=== PATIENT | male | born 1955 | race Caucasian/White ===

== ENCOUNTER → 2016-11-23 | Outpatient (CLI) | payer BC ==
--- NOTE | 2016-11-23 17:31 | CT ---
EXAMINATION TYPE: CT brain wo con DATE OF EXAM: 11/23/2016 4:43 PM COMPARISON: NONE INDICATION: Left sided numbness DLP: 978.2 mGycm, Automated exposure control for dose reduction was used. CONTRAST: None CT of the brain is performed utilizing 3 mm thick sections through the posterior fossa and 3 mm thick sections through the remaining calvarium. Study is performed within 24 hours of arrival to the hosp [facility]. No abnormal hyperdensity is present to suggest an acute intracranial hemorrhage. No mass lesion is evident. No acute infarcts are evident. Ventricles and sulci are appropriate for the patient age. Paranasal sinuses and mastoid air cells within the [id number] are clear. IMPRESSIONS: 1. Normal CT Brain
--- NOTE | 2016-11-24 14:12 | US ---
EXAMINATION TYPE: US carotid duplex BILAT DATE OF EXAM: 11/23/2016 4:37 PM COMPARISON: NONE CLINICAL HISTORY: L sided Numbness R20.2. EXAM MEASUREMENTS: RIGHT: Peak Systolic Velocity (PSV) cm/sec ----- Right CCA: 69.7 ----- Right ICA: 75.5 ----- Right ECA: 76.7 ICA/CCA ratio: 1.1 RIGHT: End Diastole cm/sec ----- Right CCA: 18.8 ----- Right ICA: 20.2 ----- Right ECA: 10.8 LEFT: Peak Systolic Velocity (PSV) cm/sec ----- Left CCA: 74.5 ----- Left ICA: 57.2 ----- Left ECA: 45.6 ICA/CCA ratio: 0.8 LEFT: End Diastole cm/sec ----- Left CCA: 28.2 ----- Left ICA: 25.3 ----- Left ECA: 9.6 VERTEBRALS (direction of flow): Right Vertebral: Antegrade Left Vertebral: Antegrade No significant velocity elevations, minimal plaque. IMPRESSION: I DO NOT SEE EVIDENCE OF A HEMODYNAMICALLY SIGNIFICANT STENOSIS IN EITHER CAROTID SYSTEM. Criteria for Assigning % of Stenosis / Diameter reduction (Estimation based on the indirect measurements of the internal carotid artery velocities (ICA PSV). 1. Normal (no stenosis)=ICA PSV < 125 cm/s: ratio < 2.0: ICA EDV<40 cm/s. 2. Less than 50% stenosis=ICA PSV < 125 cm/s: ratio < 2.0: ICA EDV<40 cm/s. 3. 50 to 69% stenosis=ICA PSV of 125 to 230 cm/s: ration 2.0 ? 4.0: ICA EDV 40-100 cm/s. 4. Greater than 70% stenosis to near occlusion= ICA PSV > 230 cm/s: ratio > 4.0: ICA EDV > 100 cm/s. 5. Near occlusion= ICA PSV velocities may be low or undetectable: variable ratio and ICA EDV. 6. Total occlusion=unable to detect flow.
== END | disposition home or self-care (01) ==
LOC: RADCTMAIN 16:01
PROVIDERS: ATTEND Family Medicine
DX: R20.2 Paresthesia of skin (principal)
CPT/HCPCS: 70450; 93880

== ENCOUNTER 2021-05-02 18:13 | Emergency (ER) | payer MEDICAID ==
--- NOTE | 2021-05-02 18:55 | XR ---
EXAMINATION TYPE: XR chest 2V DATE OF EXAM: 05/02/2021 COMPARISON: NONE HISTORY: Short of breath TECHNIQUE: 2 views FINDINGS: There is some pleural reaction at the lung bases. There is mild subsegmental atelectasis at the lung bases. There is no heart failure. There are no hilar masses. Heart is normal. Bony thorax i s intact. IMPRESSION: Pleural reaction and mild atelectasis at the lung bases. Normal heart.
[2021-05-02] MEDS ORDERED: ACETAMINOPHEN TAB 500 MG TAB PO STA (21:04)
[2021-05-02] MEDS ORDERED: IBUPROFEN 400 MG TAB PO STA (21:04)
[2021-05-02] MEDS ORDERED: ALBUTEROL HFA INHALER INHALATION STA (21:30)
[2021-05-02] MEDS ORDERED: SODIUM CHLORIDE 0.9% 50 ML IVPB ONE (21:30)
--- NOTE | 2021-05-02 21:40 | ED ---
General Adult HPI - General Chief complaint: Shortness of Breath Stated complaint: Covid+ Time Seen by Provider: 05/02/21 20:24 Source: patient, RN notes reviewed, old records reviewed Mode of arrival: ambulatory Limitations: no limitations - History of Present Illness Initial comments: I evaluated the patient when he was placed in a room. Patient is a 65-year-old male with past medical history remarkable for hypertension who presents emergency Department complaining of acute COVID-19 infection. Symptoms started on Saturday and he tested positive on 04/27/2021. His is also infected. Patient presents complaining of worsening shortness of breath over the last few days. Also endorses generalized fatigue and fevers. States he took Tylenol this morning for his fever but does not repeatedly taken it since. He denies any chest pain, productive cough, abdominal pain, nausea, vomiting. Denies any headaches. Denies any diarrhea. Has no urinary complaints. Patient's primary complaints are shortness of breath as well as his fever. His no other acute complaint at this time. He was not vaccinated for COVID-19. - Related Data Home Medications Medication Instructions Recorded Confirmed Aspirin 81 mg PO DAILY 09/24/14 05/02/21 Multivitamins, Thera [Theragran] 1 tab PO DAILY 09/24/14 05/02/21 amLODIPine BESYLATE/BENAZEPRIL 1 cap PO HS 05/02/21 05/02/21 [Lotrel 10-20 MG] Previous Rx's Medication Instructions Recorded Acetaminophen [Tylenol Extra 500 mg PO Q6HR PRN 14 Days #56 05/02/21 Strength] packet Albuterol Inhaler [Ventolin Hfa 1 puff INHALATION RT-QID #8 gm 05/02/21 Inhaler] Allergies Allergy/AdvReac Type Severity Reaction Status Date / Time No Known Allergies Allergy Verified 05/02/21 20:48 Review of Systems ROS Statement: Those systems with pertinent positive or pertinent negative responses have been documented in the HPI. Review of Systems: CONST: Endorses fever, fatigue EYES: Denies blurry vision ENT: Denies nasal congestion C/V: Denies Chest pain RESP: Endorses shortness of breath, cough GI: Denies abdominal pain : Denies dysuria SKIN: Denies rash. MSK: Denies joint pain. NEURO: Denies headache ROS Other: All systems not noted in ROS Statement are negative. Past Medical History Past Medical History: Hypertension Additional Past Medical History / Comment(s): VARICOSE VEINS, FEELS LIKE FOOD SOMETIMES GETS STUCK History of Any Multi-Drug Resistant Organisms: None Reported Additional Past Surgical History / Comment(s): SLIVER REMOVED FROM PALM OF HAND Additional Past Anesthesia/Blood Transfusion Reaction / Comment(s): BROTHER HAD HARD TIME WAKING UP FROM ANESTHESIA Past Psychological History: No Psychological Hx Reported Past Alcohol Use History: Occasional Past Drug Use History: None Reported - Past Family History Father Family Medical History: Deep Vein Thrombosis (DVT) General Exam - General Exam Comments Initial Comments: General: Appears fatigued. No increased work of breathing at this time. HEAD: Normal with no signs of head trauma. EYES: PERRLA, EOMI, conjunctiva normal, no discharge. ENT: Hearing grossly intact, normal oropharynx. RESPIRATORY: Relatively clear breath sounds bilaterally without any obvious rales or rhonchi. C/V: Tachycardic. Regular rhythm. S1 and S2 auscultated. Peripheral pulses are 2+ and intact throughout. ABD: Abd is soft, nontender, nondistended EXT: Normal range of motion, no obvious deformity SKIN: No rashes or lesions observed on exposed skin. NEURO: Alert and oriented x 4. Cranial nerves II-XII intact. No focal sensory or strength deficits. Limitations: no limitations Course Vital Signs 05/02/21 05/02/21 18:23 20:36 Temperature 101.5 F H Pulse Rate 109 H 115 H Respiratory 19 Rate Blood Pressure 136/79 O2 Sat by Pulse 93 L 94 L Oximetry Medical Decision Making - Medical Decision Making Based on the patient's presentation and physical exam, I'm concerned for COVID- 19 pneumonia. I'm also seeing the patient's . Patient has a confirmed positive at note said test. X-ray was ordered in triage which did reveal some mild infiltrates in the bilateral lower lobes but it is not severe at this time. Patient is mildly tachycardic but he is also febrile and has not had any antipyretics in quite some time. He will be given antipyretic therapy. Infiltrate pulse ox is 94% on room air. Blood pressure stable. I don't believe that labs or further imaging required at this time. I discussed with him administration of monoclonal antibodies and he was in agreement this plan. Patient will be given Tylenol and Motrin for antipyretic therapy and he will be administered monoclonal antibodies. He'll be observed for a period of time for any signs of ALLERGIC reaction. I will also order him an albuterol inhaler. Patient was in agreement with this plan. Patient's fever's improved following antipyretic therapy. Antibody infusion is completed at this time. Believe it is safe for him to be discharged home. He has not had any ALLERGIC reaction. We discuss isolation as he is likely still infectious. He was in agreement. I advised him to return if he has any worsening symptoms. I will provide the patient with a prescription for albuterol inhaler, Tylenol. I instructed the patient to follow up with their PCP in the next 3 days. I explained that the patient should return to the emergency department if they experience any worsening symptoms. Strict return precautions were discussed with the patient. The patient expressed understanding of these instructions. I answered all questions that the patient had. The patient was discharged home in fair condition with their prescriptions and follow up information. Disposition Clinical Impression: Pneumonia due to COVID-19 virus Disposition: HOME SELF-CARE Condition: Fair Instructions (If sedation given, give patient instructions): Coronavirus Disease 2019 (COVID-19) Prescriptions: Acetaminophen [Tylenol Extra Strength] 500 mg PO Q6HR PRN 14 Days #56 packet PRN Reason: Fever Albuterol Inhaler [Ventolin Hfa Inhaler] 1 puff INHALATION RT-QID #8 gm Is patient prescribed a controlled substance at d/c from ED?: No Referrals: Shane Mariee DO [Primary Care Provider] - 1-2 days
[2021-05-02] MEDS ORDERED: CASIRIVIMAB (REGN10933) (EUA) 600 MG, IMDEVIMAB (REGN10987) (EUA) 600 MG in SODIUM CHLO... IVPB ONE (21:45)
[2021-05-02 23:11] VITALS: BP 144/84; PULSE 86; RESP 20; TEMP 99.6
== END 2021-05-02 23:11 | disposition home or self-care (01) ==
LOC: EC 18:13
DX: U07.1 COVID-19 (principal); J12.82 Pneumonia due to coronavirus disease 2019; I10 Essential (primary) hypertension
CPT/HCPCS: 71046; 94640; 99284

== ENCOUNTER 2021-12-19 08:52 | Day surgery (SDC) | payer MEDICAID ==
[2021-12-15 12:30] VITALS: BMI 23.7
[~2021-12-19 08:52] MED LIST: LIDOCAINE 1% (10MG/ML) FOR IV START INTRADERMA PRN
[2021-12-19 09:17] VITALS: RESP 16; TEMP 98
[2021-12-19] MEDS: LACTATED RINGERS 1,000 ML IV SCH ×2 (09:31→10:12)
[2021-12-19] MEDS ORDERED: LIDOCAINE 2% INJ 20 MG/ML (2 ML VIAL) ONE (10:14)
[2021-12-19] MEDS ORDERED: PROPOFOL 10 MG/ML 20 ML VIAL IV ONE (10:14)
--- NOTE | 2021-12-19 10:18 | P.GSHP ---
History of Present Illness H&P Date: 12/19/21 Chief Complaint: Colon cancer screening 66-year-old male here today for colonoscopy. His last colonoscopy he believes was 10 years ago. He thinks he may have had a polyp that time. No bowel complaints. Family history of colon cancer and a cousin Past Medical History Past Medical History: Hypertension Additional Past Medical History / Comment(s): VARICOSE VEINS History of Any Multi-Drug Resistant Organisms: None Reported Additional Past Surgical History / Comment(s): SLIVER REMOVED FROM PALM OF HAND Past Anesthesia/Blood Transfusion Reactions: No Reported Reaction Additional Past Anesthesia/Blood Transfusion Reaction / Comment(s): BROTHER HAD HARD TIME WAKING UP FROM ANESTHESIA Past Psychological History: No Psychological Hx Reported Smoking Status: Never smoker Past Alcohol Use History: Rare Past Drug Use History: None Reported - Past Family History Father Family Medical History: Deep Vein Thrombosis (DVT) Medications and Allergies Home Medications Medication Instructions Recorded Confirmed Type amLODIPine BESYLATE/BENAZEPRIL 1 cap PO HS 05/02/21 12/19/21 History [Lotrel 10-20 MG] Tamsulosin [Flomax] 0.4 mg PO W/SUPPER 12/15/21 12/19/21 History Allergies Allergy/AdvReac Type Severity Reaction Status Date / Time No Known Allergies Allergy Verified 12/19/21 09:17 Surgical - Exam Vital Signs Temp Pulse Resp BP Pulse Ox 98.0 F 65 16 175/77 100 12/19/21 09:15 12/19/21 09:15 12/19/21 09:15 12/19/21 09:15 12/19/21 09:15 Physical exam: General: Well-developed, well-nourished HEENT: Normocephalic, sclerae nonicteric Abdomen: Nontender, nondistended Extremities: No edema Neuro: Alert and oriented Assessment and Plan (1) Colon cancer screening Narrative/Plan: Will proceed with colonoscopy at this time Current Visit: Yes Status: Acute Code(s): Z12.11 - ENCOUNTER FOR SCREENING FOR MALIGNANT NEOPLASM OF COLON SNOMED Code(s): 308671442
--- NOTE | 2021-12-19 10:32 | P.PCN ---
Date of Procedure: 12/19/21 Procedure(s) Performed: PREOPERATIVE DIAGNOSIS: Colon cancer screening POSTOPERATIVE DIAGNOSIS: Diverticulosis PROCEDURE: Colonoscopy ANESTHESIA: MAC SURGEON: Chong Victoria M.D. SPECIMENS: None ENDOSCOPIC PROCEDURE: The patient was placed on the endoscopy table in the left decubitus position. The Olympus colonoscope was inserted into the anus and passed under direct visualization to the base of the cecum. The appendiceal orifice was visualized. From that point the scope was slowly withdrawn inspe cting all surfaces carefully. There were no neoplastic inflammatory or polypoid lesions throughout the cecum, ascending, transverse, descending, sigmoid and rectum. There was mild left-sided diverticulosis noted. Digital rectal examination was normal. The patient was taken to the recovery room in stable condition per anesthesia guidelines. RECOMMENDATIONS: Resume diet. Follow-up colonoscopy in 10 years.
[2021-12-19 10:53] VITALS: BP 146/78; PULSE 60
== END 2021-12-19 11:10 | disposition home or self-care (01) ==
LOC: ORWHC2ENDO 08:52
PROVIDERS: ATTEND Surgery
DX: K57.30 Diverticulosis of large intestine without perforation or abscess without bleeding (principal); Z80.0 Family history of malignant neoplasm of digestive organs; I10 Essential (primary) hypertension
CPT/HCPCS: 45378; J2704; J2001

== ENCOUNTER → 2022-01-12 | Outpatient (CLI) | payer MEDICAID ==
--- NOTE | 2022-01-14 08:37 | MR ---
EXAMINATION TYPE: MR Prostate wo/w con DATE OF EXAM: 01/12/2022 COMPARISON: None. INDICATION: Elevated PSA levels. PSA: 4.7 ng/ml on July 19, 2021, was 4.9 on June 22, 2021 Recent Biopsy and Date: none Pathology Report (If Applicable): n/a TECHNIQUE: Examination was performed using a 3T MRI without an endorectal coil. Multiparametric imaging was perf ormed with T2 mutliplanar sequences, axial diffusion weighted imaging and dynamic contrast enhanced i maging, utilizing 7 mL intravenous Gadavist gadolinium contrast. FINDINGS: There is no clinically significant cancer identified. PROSTATE VOLUME: 4.3 cm SI x 3.7 cm AP x 4.9 cm LR Vol= 40.8 cc Predicted PSA equals 4.90 PSA DENSITY: 0.12 ng/ml/cc Slightly enlarged prostate gland. Peripheral zone appears unremarkable. Central transitional zone rosalinda ws heterogeneity without suspicious hypoechoic areas on T2-weighted images and/or areas of restricted diffusion. Prostate capsule is maintained. Seminal vesicles symmetric and within normal limits. Bladder shows no abnormal wall thickening or significant trabeculation. No pelvic fluid collection is identified. Degenerative changes at lumbosacral junction and right L4-L5 level are appreciated. No s uspicious small or large bowel dilatation. No concerning groin hernia or adenopathy. IMPRESSION: A focus of clinically significant cancer is not identified. Highest Assessment Category: 1 MRI Stage: T0 N0 M0 based on review of pelvic images. False negative rates for MRI range from 5-20% depending on risk profile. Assessment Categories: 1 ? Very low (clinically significant cancer is highly unlikely to be present) 2 ? Low (clinically significant cancer is unlikely to be present) 3 ? Intermediate (the presence of clinically significant cancer is equivocal) 4 ? High (clinically significant cancer is likely to be present) 5 ? Very high (clinically significant cancer is highly likely to be present)
== END | disposition home or self-care (01) ==
LOC: RADMRIMAIN 06:57
PROVIDERS: ATTEND Urology
DX: R97.20 Elevated prostate specific antigen [PSA] (principal)
CPT/HCPCS: 72197; A9585

== ENCOUNTER 2022-01-31 18:40 | Emergency (ER) | payer MEDICAID, MEDICARE ==
[2022-01-31 19:06] VITALS: BP 145/72; PULSE 71; RESP 16; TEMP 98.1
--- NOTE | 2022-01-31 19:32 | ED ---
Lower Extremity Injury HPI - General Chief Complaint: Extremity Injury, Lower Stated Complaint: Rt foot injury Time Seen by Provider: 01/31/22 19:17 Source: patient, RN notes reviewed Mode of arrival: ambulatory Limitations: no limitations - History of Present Illness Initial Comments: This is a pleasant 66-year-old male who was cutting wood prior to arrival and dropped a large tree branch on the dorsum of his right foot. Patient planing of pain to that area which is exacerbated by movement and palpation. Patient is able to amply with antalgia. No other injuries. No distal paresthesias. No vessel proximal injuries. No headache, no fever or chills, no changes in vision or hearing, no sore throat or difficulty with speech, no neck pain, no chest pain or shortness of breath, no abdominal pain, no nausea or vomiting, no changes in urination or bowel movements, no numbness or tingling,, no skin rashes or lesions. Past medical, surgical, social, and family history reviewed. Took Tylenol prior to arrival - Related Data Home Medications Medication Instructions Recorded Confirmed amLODIPine BESYLATE/BENAZEPRIL 1 cap PO HS 05/02/21 12/19/21 [Lotrel 10-20 MG] Tamsulosin [Flomax] 0.4 mg PO W/SUPPER 12/15/21 12/19/21 Allergies Allergy/AdvReac Type Severity Reaction Status Date / Time No Known Allergies Allergy Verified 01/31/22 19:06 Review of Systems ROS Statement: Those systems with pertinent positive or pertinent negative responses have been documented in the HPI. ROS Other: All systems not noted in ROS Statement are negative. Past Medical History Past Medical History: Hypertension Additional Past Medical History / Comment(s): VARICOSE VEINS, FEELS LIKE FOOD SOMETIMES GETS STUCK History of Any Multi-Drug Resistant Organisms: None Reported Past Surgical History: No Surgical Hx Reported Additional Past Surgical History / Comment(s): SLIVER REMOVED FROM PALM OF HAND Additional Past Anesthesia/Blood Transfusion Reaction / Comment(s): BROTHER HAD HARD TIME WAKING UP FROM ANESTHESIA Past Psychological History: No Psychological Hx Reported Smoking Status: Never smoker Past Alcohol Use History: Occasional Past Drug Use History: None Reported - Past Family History Father Family Medical History: Deep Vein Thrombosis (DVT) General Exam - General Exam Comments Initial Comments: Patient in no significant distress. Vital signs reviewed Limitations: no limitations General appearance: alert, in no apparent distress Head exam: Present: atraumatic, normocephalic, normal inspection Eye exam: Present: normal appearance, EOMI Neck exam: Present: normal inspection, full ROM. Absent: tenderness, meningismus, lymphadenopathy Respiratory exam: Present: normal lung sounds bilaterally. Absent: respiratory distress, wheezes, rales, rhonchi, stridor Cardiovascular Exam: Present: regular rate, normal rhythm, normal heart sounds. Absent: systolic murmur, diastolic murmur, rubs, gallop, clicks GI/Abdominal exam: Present: soft. Absent: tenderness Extremities exam: Present: tenderness (Tenderness the dorsum of the right foot. No break in skin integrity. Tender over the lateral cuneiform area. Pulses intact. No ankle tenderness. No tenderness into the metatarsals. Distal sensation intact range of motion intact with pain) Right Lower Leg exam: Present: normal inspection. Absent: tenderness, swelling Ankle exam: Present: normal inspection, full ROM. Absent: tenderness, swelling Foot/Toe exam: Present: tenderness, swelling. Absent: abrasion, laceration, ecchymosis, deformity, dislocation, erythema, amputation, puncture wound Neurovascular tendon exam: Present: no vascular compromise. Absent: pulse deficit, abnormal cap refill, motor deficit, sensory deficit, tendon deficit, extremity cold to touch, pallor Gait: antalgic Back exam: Present: normal inspection Neurological exam: Present: alert, oriented X3, CN II-XII intact. Absent: motor sensory deficit Psychiatric exam: Present: normal affect, normal mood Skin exam: Present: warm, dry, intact, normal color. Absent: rash Course Vital Signs 01/31/22 19:03 Temperature 98.1 F Pulse Rate 71 Respiratory 16 Rate Blood Pressure 145/72 O2 Sat by Pulse 98 Oximetry Procedures - Orthopedic Splinting/Casting Injury #1 Side: right Lower Extremity Injury Location: foot Lower Extremity Immobilizer: posterior splint, Hilario wrap, fiberglass cast Other Orthopedic Equipment: crutches Additional Comments: Distal neurovascular status intact both pre-and post-application Medical Decision Making - Medical Decision Making Patient does have a calcification noted by me on the lateral view of the foot. X-rays read as negative by radiology. This is an isolated right foot injury. Right foot contusion with possible occult fracture based on the findings. We'll treat with splinting, immobilization, and crutches until orthopedic follow-up. Patient counseled on splint care. Counseled on signs and symptoms of compartment syndrome. Patient was told to return to the ER for any signs or symptoms worsen. Told to return immediately if any other problems arise. All questions answered. Treatment plan discussed. Patient in agreement Every effort has been made to ensure accuracy of this dictation. However, due to the limitations of electronic medical records and dictation devices, errors in charting still occur. Ironer Hand Dr. Oswald Disposition Clinical Impression: Contusion of right foot, initial encounter Narrative: Possible occult fracture Disposition: HOME SELF-CARE Condition: Stable Instructions (If sedation given, give patient instructions): Foot Contusion (ED) Additional Instructions: You could have an occult fracture and your foot. For this reason we will have to recheck with the orthopedic physician. Keep the splint on until follow-up. Use the crutches as directed. Elevate as much as possible. Ice 20 minutes on and off for times daily. Use [id number] acetaminophen and/or ibuprofen for pain control. Return to the ER immediately if any symptoms worsen, new symptoms arise, or any other problems develop. Is patient prescribed a controlled substance at d/c from ED?: No Referrals: Enrique Balbuena MD [STAFF PHYSICIAN] - 1-2 days Time of Disposition: 20:08
--- NOTE | 2022-01-31 19:48 | XR ---
EXAMINATION TYPE: XR foot complete RT DATE OF EXAM: 01/31/2022 7:40 PM INDICATION: Patient age:Male; 66 years old; Reason for study: Injury/pain; COMPARISON: None TECHNIQUE: The right foot was examined in the AP, oblique, and lateral projections. FINDINGS: No evidence of any acute osseous pathology. No evidence of soft tissue swelling. Joints are preserve d. Joint space narrowing most pronounced at the first metatarsal phalangeal joint. Calcaneal Achilles enthesophyte noted. IMPRESSION: No evidence of acute fracture.
== END 2022-01-31 20:24 | disposition home or self-care (01) ==
LOC: EC 18:40
DX: S90.31XA Contusion of right foot, initial encounter (principal); I10 Essential (primary) hypertension; Z79.899 Other long term (current) drug therapy
CPT/HCPCS: 29515; 99283

== ENCOUNTER 2022-05-20 13:32 | Inpatient (IN) | payer MEDICAID, MEDICARE ==
--- NOTE | 2022-05-20 13:59 | ED ---
Abdominal Pain HPI - General Chief Complaint: Abdominal Pain Stated Complaint: Fever,PO Surgery Time Seen by Provider: 05/20/22 13:47 Source: patient, family, RN notes reviewed Mode of arrival: ambulatory Limitations: no limitations - History of Present Illness Initial Comments: This is a 66-year-old male who presents to the emergency department for fevers. On 05/11 he had a TURP with Dr. Baird. He had been doing well and his Short catheter was removed without any problems. 2 days ago, he started having fevers, chills, and overall feels unwell. Denies having any significant pain, but states that he feels uncomfortable. Denies any nausea, vomiting, or sick contacts. He has also not had any upper respiratory symptoms. Denies any sore throat, cough, dyspnea, chest pain, palpitations, abdominal pain, nausea, vomiting, diarrhea, back pain, or headaches. - Related Data Home Medications Medication Instructions Recorded Confirmed amLODIPine BESYLATE/BENAZEPRIL 1 cap PO HS 05/02/21 05/20/22 [Lotrel 10-20 MG] Multivitamins, Thera [Multivitamin 1 tab PO HS 05/20/22 05/20/22 (formulary)] Allergies Allergy/AdvReac Type Severity Reaction Status Date / Time No Known Allergies Allergy Verified 05/20/22 16:44 Review of Systems ROS Statement: Those systems with pertinent positive or pertinent negative responses have been documented in the HPI. ROS Other: All systems not noted in ROS Statement are negative. Past Medical History Past Medical History: Hypertension Additional Past Medical History / Comment(s): VARICOSE VEINS, FEELS LIKE FOOD SOMETIMES GETS STUCK History of Any Multi-Drug Resistant Organisms: None Reported Past Surgical History: No Surgical Hx Reported Additional Past Surgical History / Comment(s): SLIVER REMOVED FROM PALM OF HAND, TURP Additional Past Anesthesia/Blood Transfusion Reaction / Comment(s): BROTHER HAD HARD TIME WAKING UP FROM ANESTHESIA Past Psychological History: No Psychological Hx Reported Smoking Status: Never smoker Past Alcohol Use History: Occasional Past Drug Use History: None Reported - Past Family History Father Family Medical History: Deep Vein Thrombosis (DVT) General Exam Limitations: no limitations General appearance: alert, in no apparent distress Head exam: Present: atraumatic, normocephalic, normal inspection Respiratory exam: Present: normal lung sounds bilaterally. Absent: respiratory distress, wheezes, rales, rhonchi, stridor Cardiovascular Exam: Present: regular rate, normal rhythm, normal heart sounds. Absent: systolic murmur, diastolic murmur, rubs, gallop, clicks GI/Abdominal exam: Present: soft, normal bowel sounds. Absent: distended, tenderness, guarding, rebound, rigid Back exam: Absent: CVA tenderness (R), CVA tenderness (L) Neurological exam: Present: alert, oriented X3, CN II-XII intact Psychiatric exam: Present: normal affect, normal mood Skin exam: Present: warm, dry, intact, normal color. Absent: rash Course Vital Signs 05/20/22 05/20/22 05/20/22 13:40 15:15 16:00 Temperature 98.8 F Pulse Rate 91 89 89 Respiratory 20 17 17 Rate Blood Pressure 125/66 120/70 124/64 O2 Sat by Pulse 96 97 98 Oximetry 05/20/22 16:45 Temperature 99.1 F Pulse Rate 92 Respiratory 18 Rate Blood Pressure 104/83 O2 Sat by Pulse 96 Oximetry Medical Decision Making - Medical Decision Making This is a 66-year-old male who presents to the emergency department for fevers and chills. Lab work reveals fairly significant leukocytosis of 32. CMP is also consistent with dehydration and urinalysis is consistent with an infection. Computed tomography scan of the abdomen and pelvis obtained, and based on my interpretation I did not identify any signs of an obstructing calculus or hydronephrosis. The radiologist also did not identify any acute intra-abdominal process. Patient essentially meets SIRS criteria due to the leukocytosis and heart rate ranging from 89-92 BPM. He was initially given a liter bolus of normal saline and a dose of ceftriaxone, and was then started on maintenance fluids. Given the level of infection associated with the urine and the recent surgery, patient will be admitted to medicine for IV antibiotics. Urine and blood cultures ordered with results pending. This case was discussed in detail with the attending ED physician. Presentation, findings, and treatment plan discussed in detail as well. - Lab Data Result diagrams: 05/20/22 14:04 05/20/22 14:04 Lab Results 05/20/22 05/20/22 05/20/22 Range/Units 14:04 14:04 14:04 WBC 32.2 H (3.8-10.6) k/uL RBC 4.36 (4.30-5.90) m/uL Hgb 13.8 (13.0-17.5) gm/dL Hct 40.0 (39.0-53.0) % MCV 91.6 (80.0-100.0) fL MCH 31.7 (25.0-35.0) pg MCHC 34.6 (31.0-37.0) g/dL RDW 12.4 (11.5-15.5) % Plt Count 195 (150-450) k/uL MPV 9.5 Neutrophils % (Manual) 87 % Band Neuts % (Manual) 3 % Lymphocytes % (Manual) 1 % Monocytes % (Manual) 8 % Basophils % (Manual) 1 % Neutrophils # (Manual) 28.90 H (1.3-7.7) k/uL Lymphocytes # (Manual) 0.32 L (1.0-4.8) k/uL Monocytes # (Manual) 2.58 H (0-1.0) k/uL Basophils # (Manual) 0.32 H (0-0.2) k/uL Nucleated RBCs 0 (0-0) /100 WBC Manual Slide Review Performed RBC Morphology Normal Sodium 135 L (137-145) mmol/L Potassium 4.5 (3.5-5.1) mmol/L Chloride 101 (98-107) mmol/L Carbon Dioxide 26 (22-30) mmol/L Anion Gap 8 mmol/L BUN 28 H (9-20) mg/dL Creatinine 1.26 H (0.66-1.25) mg/dL Est GFR (CKD-EPI)AfAm 68 (>60 ml/min/1.73 sqM) Est GFR (CKD-EPI)NonAf 59 (>60 ml/min/1.73 sqM) Glucose 115 H (74-99) mg/dL Plasma Lactic Acid Min (0.7-2.0) mmol/L Calcium 8.7 (8.4-10.2) mg/dL Total Bilirubin 1.0 (0.2-1.3) mg/dL AST 31 (17-59) U/L ALT 20 (4-49) U/L Alkaline Phosphatase 76 (38-126) U/L Troponin I (0.000-0.034) ng/mL Total Protein 6.8 (6.3-8.2) g/dL Albumin 3.9 (3.5-5.0) g/dL Amylase 39 (30-110) U/L Lipase 24 (23-300) U/L Urine Color Yellow Urine Appearance Turbid (Clear) Urine pH 5.5 (5.0-8.0) Ur Specific [place] 1.023 (1.001-1.035) Urine Protein 1+ H (Negative) Urine Glucose (UA) Negative (Negative) Urine Ketones Negative (Negative) Urine Blood Large H (Negative) Urine Nitrite Negative (Negative) Urine Bilirubin Negative (Negative) Urine Urobilinogen <2.0 (<2.0) mg/dL Ur Leukocyte Esterase Large H (Negative) Urine RBC >182 H (0-5) /hpf Urine WBC >182 H (0-5) /hpf Urine Bacteria Occasional H (None) /hpf Urine Mucus Moderate H (None) /hpf Coronavirus (PCR) (Not Detectd) Influenza Type A RNA (Not Detectd) Influenza Type B (PCR) (Not Detectd) 05/20/22 05/20/22 05/20/22 Range/Units 14:04 14:04 14:04 WBC (3.8-10.6) k/uL RBC (4.30-5.90) m/uL Hgb (13.0-17.5) gm/dL Hct (39.0-53.0) % MCV (80.0-100.0) fL MCH (25.0-35.0) pg MCHC (31.0-37.0) g/dL RDW (11.5-15.5) % Plt Count (150-450) k/uL MPV Neutrophils % (Manual) % Band Neuts % (Manual) % Lymphocytes % (Manual) % Monocytes % (Manual) % Basophils % (Manual) % Neutrophils # (Manual) (1.3-7.7) k/uL Lymphocytes # (Manual) (1.0-4.8) k/uL Monocytes # (Manual) (0-1.0) k/uL Basophils # (Manual) (0-0.2) k/uL Nucleated RBCs (0-0) /100 WBC Manual Slide Review RBC Morphology Sodium (137-145) mmol/L Potassium (3.5-5.1) mmol/L Chloride (98-107) mmol/L Carbon Dioxide (22-30) mmol/L Anion Gap mmol/L BUN (9-20) mg/dL Creatinine (0.66-1.25) mg/dL Est GFR (CKD-EPI)AfAm (>60 ml/min/1.73 sqM) Est GFR (CKD-EPI)NonAf (>60 ml/min/1.73 sqM) Glucose (74-99) mg/dL Plasma Lactic Acid Min 1.6 (0.7-2.0) mmol/L Calcium (8.4-10.2) mg/dL Total Bilirubin (0.2-1.3) mg/dL AST (17-59) U/L ALT (4-49) U/L Alkaline Phosphatase (38-126) U/L Troponin I <0.012 (0.000-0.034) ng/mL Total Protein (6.3-8.2) g/dL Albumin (3.5-5.0) g/dL Amylase (30-110) U/L Lipase (23-300) U/L Urine Color Urine Appearance (Clear) Urine pH (5.0-8.0) Ur Specific [place] (1.001-1.035) Urine Protein (Negative) Urine Glucose (UA) (Negative) Urine Ketones (Negative) Urine Blood (Negative) Urine Nitrite (Negative) Urine Bilirubin (Negative) Urine Urobilinogen (<2.0) mg/dL Ur Leukocyte Esterase (Negative) Urine RBC (0-5) /hpf Urine WBC (0-5) /hpf Urine Bacteria (None) /hpf Urine Mucus (None) /hpf Coronavirus (PCR) (Not Detectd) Influenza Type A RNA Not Detected (Not Detectd) Influenza Type B (PCR) Not Detected (Not Detectd) 05/20/22 Range/Units 14:04 WBC (3.8-10.6) k/uL RBC (4.30-5.90) m/uL Hgb (13.0-17.5) gm/dL Hct (39.0-53.0) % MCV (80.0-100.0) fL MCH (25.0-35.0) pg MCHC (31.0-37.0) g/dL RDW (11.5-15.5) % Plt Count (150-450) k/uL MPV Neutrophils % (Manual) % Band Neuts % (Manual) % Lymphocytes % (Manual) % Monocytes % (Manual) % Basophils % (Manual) % Neutrophils # (Manual) (1.3-7.7) k/uL Lymphocytes # (Manual) (1.0-4.8) k/uL Monocytes # (Manual) (0-1.0) k/uL Basophils # (Manual) (0-0.2) k/uL Nucleated RBCs (0-0) /100 WBC Manual Slide Review RBC Morphology Sodium (137-145) mmol/L Potassium (3.5-5.1) mmol/L Chloride (98-107) mmol/L Carbon Dioxide (22-30) mmol/L Anion Gap mmol/L BUN (9-20) mg/dL Creatinine (0.66-1.25) mg/dL Est GFR (CKD-EPI)AfAm (>60 ml/min/1.73 sqM) Est GFR (CKD-EPI)NonAf (>60 ml/min/1.73 sqM) Glucose (74-99) mg/dL Plasma Lactic Acid Min (0.7-2.0) mmol/L Calcium (8.4-10.2) mg/dL Total Bilirubin (0.2-1.3) mg/dL AST (17-59) U/L ALT (4-49) U/L Alkaline Phosphatase (38-126) U/L Troponin I (0.000-0.034) ng/mL Total Protein (6.3-8.2) g/dL Albumin (3.5-5.0) g/dL Amylase (30-110) U/L Lipase (23-300) U/L Urine Color Urine Appearance (Clear) Urine pH (5.0-8.0) Ur Specific [place] (1.001-1.035) Urine Protein (Negative) Urine Glucose (UA) (Negative) Urine Ketones (Negative) Urine Blood (Negative) Urine Nitrite (Negative) Urine Bilirubin (Negative) Urine Urobilinogen (<2.0) mg/dL Ur Leukocyte Esterase (Negative) Urine RBC (0-5) /hpf Urine WBC (0-5) /hpf Urine Bacteria (None) /hpf Urine Mucus (None) /hpf Coronavirus (PCR) Not Detected (Not Detectd) Influenza Type A RNA (Not Detectd) Influenza Type B (PCR) (Not Detectd) - EKG Data -: EKG Interpreted by Me EKG Comments: Sinus rhythm. Normal axis. Ventricular rate 78 bpm, CA interval 160 ms, QRS duration 101 ms, QTC 396 ms. - Radiology Data Radiology results: report reviewed, image reviewed Disposition Clinical Impression: UTI (urinary tract infection), Postoperative fever Disposition: ADMITTED IP TO THIS HOSP Referrals: Shane Mariee DO [Primary Care Provider] - 1-2 days
[2022-05-20 14:24] LABS: HGB 13.8 gm/dL (13.0-17.5); MCH 31.7 pg (25.0-35.0); MCHC 34.6 g/dL (31.0-37.0); MCV 91.6 fL (80.0-100.0); Mean Platelet Volume 9.5; Platelet Count 195 k/uL (150-450); RBC 4.36 m/uL (4.30-5.90); RDW 12.4 % (11.5-15.5); WBC 32.2 k/uL (3.8-10.6)
[2022-05-20] MEDS ORDERED: SODIUM CHLORIDE 0.9% 1,000 ML IV STA ×3 (14:25→16:22)
[2022-05-20 14:33] LABS: Albumin 3.9 g/dL (3.5-5.0); Calcium 8.7 mg/dL (8.4-10.2); Potassium 4.5 mmol/L (3.5-5.1); Total Protein 6.8 g/dL (6.3-8.2)
[2022-05-20 14:51] LABS: Band Neutrophils % 3 %; Basophils # (M) 0.32 k/uL (0-0.2); Lymphocytes # (M) 0.32 k/uL (1.0-4.8); Monocytes # (M) 2.58 k/uL (0-1.0); Neutrophils % (M) 87 %; Nucleated Red Blood Cells 0 /100 WBC (0-0); Total Cells Counted 100
[2022-05-20 15:02] LABS: RBC Morphology Normal
[2022-05-20 15:30] LABS: Appearance,Urine Turbid (Clear); Bacteria,Urine Occasional /hpf; Bilirubin,Urine Negative (Negative); Blood,Urine Large (Negative); Color,Urine Yellow; Glucose,Urine (UA) Negative (Negative); Ketones,Urine Negative (Negative); Leukocyte Esterase,Urine Large (Negative); Mucus,Urine Moderate /hpf; Nitrite,Urine Negative (Negative); PH, Urine 5.5 (5.0-8.0); Protein,Urine 1+ (Negative); RBC,Urine >182 /hpf (0-5); Specific Gravity,Urine 1.023 (1.001-1.035); Urobilinogen,Urine <2.0 mg/dL (<2.0); WBC,Urine >182 /hpf (0-5)
[2022-05-20] MEDS ORDERED: cefTRIAXone IN SWFI 1,000 MG/10 ML SYRINGE IVP STA (15:48)
--- NOTE | 2022-05-20 15:52 | CT ---
EXAMINATION TYPE: CT abdomen pelvis w con DATE OF EXAM: 05/20/2022 COMPARISON: None HISTORY: Fevers, chills, abdominal pain after TURP CT DLP: 713.3 mGycm Automated exposure control for dose reduction was used. CONTRAST: Performed with IV Contrast, patient injected with 80 mL of Isovue 300. Images obtained from the diaphragm to the floor the pelvis with the IV contrast. Lung bases are clear of consolidation. Minimal subsegmental atelectasis right lung base. No pleural e ffusion. Heart is slightly enlarged. No pericardial effusion. There is 2 cm cyst in the superior righ t lobe of the liver. Gallbladder is intact. There is 1 cm cyst inferior right lobe of the liver. Sple en is intact. Stomach is intact. There is no pancreatic mass. The bile ducts are not dilated. There is no adrenal mass. Kidneys have normal size. No hydronephrosis. Ureters are not dilated. No re troperitoneal adenopathy. There is 2 cm cortical cyst posterior left kidney. No inguinal hernia. No f ree fluid in the pelvis. Bladder distends smoothly. There is prostate calcification. There is a 5 cm prostate. There is deformity at the base of the urinary bladder consistent with prostate surgery. There is no mesenteric edema. No ascites or free air. No sign of a bowel obstruction. There are a few sigmoid diverticula. No diverticulitis. The lumbar vertebra have normal alignment. There is multilev el disc space narrowing and vacuum disc and spur formation. No compression fracture. The bony pelvis is intact. The hip joints are intact. 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 Previous prostate surgery. Hepatic cysts.
[2022-05-20] MEDS ORDERED: HYDROcodone/APAP 5-325MG 1 EACH TAB PO PRN (16:55)
[2022-05-20] MEDS ORDERED: ACETAMINOPHEN TAB 325 MG TAB PO PRN (16:55)
[2022-05-20] MEDS ORDERED: ONDANSETRON 4 MG/2 ML VIAL IVP PRN (16:55)
[2022-05-20] MEDS ORDERED: NALOXONE 0.4 MG/ML 1 ML VIAL IV PRN (16:55)
[2022-05-20] MEDS: amLODIPine 10 MG TAB PO SCH (20:09)
[2022-05-20] MEDS: lisinopriL 20 MG TAB PO SCH (20:09)
[2022-05-20] MEDS: MULTIVITAMINS, THERA 1 EACH TAB PO SCH (20:09)
[2022-05-21 09:34] LABS: Basophils # (A) 0.1 k/uL (0-0.2); Basophils % (A) 0 %; Eosinophils # (A) 0.2 k/uL (0-0.7); Eosinophils % (A) 1 %; HCT 40.3 % (39.0-53.0); HGB 13.8 gm/dL (13.0-17.5); Lymphocytes # (A) 1.5 k/uL (1.0-4.8); Lymphocytes % (A) 6 %; MCH 31.7 pg (25.0-35.0); MCHC 34.1 g/dL (31.0-37.0); MCV 92.9 fL (80.0-100.0); Mean Platelet Volume 9.5; Monocytes # (A) 0.5 k/uL (0-1.0); Monocytes % (A) 2 %; Neutrophils # (A) 24.3 k/uL (1.3-7.7); Neutrophils % (A) 91 %; Platelet Count 209 k/uL (150-450); RBC 4.34 m/uL (4.30-5.90); RDW 12.2 % (11.5-15.5); WBC 26.6 k/uL (3.8-10.6)
[2022-05-21 09:45] LABS: African American GFR (CKD) 86 (>60 ml/min/1.73 sqM); Anion Gap 11 mmol/L; Blood Urea Nitrogen 21 mg/dL (9-20); Calcium 8.7 mg/dL (8.4-10.2); Carbon Dioxide 23 mmol/L (22-30); Chloride 103 mmol/L (98-107); Glucose 134 mg/dL (74-99); Non-African American GFR(CKD) 74 (>60 ml/min/1.73 sqM); Potassium 3.7 mmol/L (3.5-5.1); Sodium 137 mmol/L (137-145)
--- NOTE | 2022-05-21 12:45 | P.GSCN ---
History of Present Illness Consult date: 05/21/22 Reason for Consult: Recent TURP, + UTI Requesting physician: Shane Mariee History of present illness: The patient is a 66-year-old male who presented to the Emergency Department on 05/20/22 for fevers. He had a recent TURP with Dr. Baird on 05/11/22. He had been doing well and his Short catheter was removed without any problems. He started having fevers and chills x two days. Denied any nausea, vomiting, or sick contacts. Denied any sore throat, cough, dyspnea, chest pain, palpitations, abdominal pain, nausea, vomiting, diarrhea, back pain, or headaches. UA positive, WBC 32.2. The patient was placed on Rocephin. Review of Systems - Constitutional Reports chills, Reports fever - EENT Ears, nose, mouth and throat: Denies headache - Cardiovascular Denies shortness of breath - Respiratory Denies cough, Denies dyspnea - Gastrointestinal Denies vomiting - Genitourinary Reports hematuria Past Medical History Past Medical History: Hypertension Additional Past Medical History / Comment(s): VARICOSE VEINS, FEELS LIKE FOOD SOMETIMES GETS STUCK History of Any Multi-Drug Resistant Organisms: None Reported Past Surgical History: No Surgical Hx Reported Additional Past Surgical History / Comment(s): SLIVER REMOVED FROM PALM OF HAND, TURP superficial cyst from chest egd, colonoscopy Additional Past Anesthesia/Blood Transfusion Reaction / Comm: BROTHER HAD HARD TIME WAKING UP FROM ANESTHESIA Past Psychological History: No Psychological Hx Reported Smoking Status: Never smoker Past Alcohol Use History: Occasional Past Drug Use History: None Reported - Past Family History Father Family Medical History: Deep Vein Thrombosis (DVT) Medications and Allergies Home Medications Medication Instructions Recorded Confirmed Type amLODIPine BESYLATE/BENAZEPRIL 1 cap PO HS 05/02/21 05/20/22 History [Lotrel 10-20 MG] Multivitamins, Thera [Multivitamin 1 tab PO HS 05/20/22 05/20/22 History (formulary)] Allergies Allergy/AdvReac Type Severity Reaction Status Date / Time No Known Allergies Allergy Verified 05/20/22 16:44 Surgical - Exam Vital Signs Temp Pulse Resp BP Pulse Ox 98.8 F 91 20 125/66 96 05/20/22 13:40 05/20/22 13:40 05/20/22 13:40 05/20/22 13:40 05/20/22 13:40 General: Well developed, well nourished. No acute distress. HEENT: Head is atraumatic, normocephalic. Lungs: . Respirations even and nonlabored. Abdomen/GI: Soft. No guarding, rigidity, or abdominal tenderness. s Vascular: No peripheral edema Skin: Warm and dry Neurologic: Awake, alert and oriented times 3. CN II-XII grossly intact. Psychiatric: Appropriate mood and affect. Results - Labs 05/21/22 09:18 05/21/22 09:18 Abnormal Lab Results - Last 24 Hours (Table) 05/20/22 05/20/22 05/20/22 Range/Units 14:04 14:04 14:04 WBC 32.2 H (3.8-10.6) k/uL Neutrophils # (1.3-7.7) k/uL Neutrophils # (Manual) 28.90 H (1.3-7.7) k/uL Lymphocytes # (Manual) 0.32 L (1.0-4.8) k/uL Monocytes # (Manual) 2.58 H (0-1.0) k/uL Basophils # (Manual) 0.32 H (0-0.2) k/uL Sodium 135 L (137-145) mmol/L BUN 28 H (9-20) mg/dL Creatinine 1.26 H (0.66-1.25) mg/dL Glucose 115 H (74-99) mg/dL Urine Protein 1+ H (Negative) Urine Blood Large H (Negative) Ur Leukocyte Esterase Large H (Negative) Urine RBC >182 H (0-5) /hpf Urine WBC >182 H (0-5) /hpf Urine Bacteria Occasional H (None) /hpf Urine Mucus Moderate H (None) /hpf 05/21/22 05/21/22 Range/Units 09:18 09:18 WBC 26.6 H (3.8-10.6) k/uL Neutrophils # 24.3 H (1.3-7.7) k/uL Neutrophils # (Manual) (1.3-7.7) k/uL Lymphocytes # (Manual) (1.0-4.8) k/uL Monocytes # (Manual) (0-1.0) k/uL Basophils # (Manual) (0-0.2) k/uL Sodium (137-145) mmol/L BUN 21 H (9-20) mg/dL Creatinine (0.66-1.25) mg/dL Glucose 134 H (74-99) mg/dL Urine Protein (Negative) Urine Blood (Negative) Ur Leukocyte Esterase (Negative) Urine RBC (0-5) /hpf Urine WBC (0-5) /hpf Urine Bacteria (None) /hpf Urine Mucus (None) /hpf Microbiology - Last 24 Hours (Table) 05/20/22 14:04 Urine Culture - Preliminary Urine,Clean Catch Diabetes panel 05/20/22 05/21/22 Range/Units 14:04 09:18 Sodium 135 L 137 (137-145) mmol/L Potassium 4.5 3.7 (3.5-5.1) mmol/L Chloride 101 103 (98-107) mmol/L Carbon Dioxide 26 23 (22-30) mmol/L BUN 28 H 21 H (9-20) mg/dL Creatinine 1.26 H 1.05 (0.66-1.25) mg/dL Glucose 115 H 134 H (74-99) mg/dL Calcium 8.7 8.7 (8.4-10.2) mg/dL AST 31 (17-59) U/L ALT 20 (4-49) U/L Alkaline Phosphatase 76 (38-126) U/L Total Protein 6.8 (6.3-8.2) g/dL Albumin 3.9 (3.5-5.0) g/dL Calcium panel 05/20/22 05/21/22 Range/Units 14:04 09:18 Calcium 8.7 8.7 (8.4-10.2) mg/dL Albumin 3.9 (3.5-5.0) g/dL Pituitary panel 05/20/22 05/21/22 Range/Units 14:04 09:18 Sodium 135 L 137 (137-145) mmol/L Potassium 4.5 3.7 (3.5-5.1) mmol/L Chloride 101 103 (98-107) mmol/L Carbon Dioxide 26 23 (22-30) mmol/L BUN 28 H 21 H (9-20) mg/dL Creatinine 1.26 H 1.05 (0.66-1.25) mg/dL Glucose 115 H 134 H (74-99) mg/dL Calcium 8.7 8.7 (8.4-10.2) mg/dL Adrenal panel 05/20/22 05/21/22 Range/Units 14:04 09:18 Sodium 135 L 137 (137-145) mmol/L Potassium 4.5 3.7 (3.5-5.1) mmol/L Chloride 101 103 (98-107) mmol/L Carbon Dioxide 26 23 (22-30) mmol/L BUN 28 H 21 H (9-20) mg/dL Creatinine 1.26 H 1.05 (0.66-1.25) mg/dL Glucose 115 H 134 H (74-99) mg/dL Calcium 8.7 8.7 (8.4-10.2) mg/dL Total Bilirubin 1.0 (0.2-1.3) mg/dL AST 31 (17-59) U/L ALT 20 (4-49) U/L Alkaline Phosphatase 76 (38-126) U/L Total Protein 6.8 (6.3-8.2) g/dL Albumin 3.9 (3.5-5.0) g/dL - Imaging CT scan - abdomen: report reviewed Assessment and Plan Assessment: The patient reports hematuria, but denies any dysuria or incontinence. No abdominal or flank pain. He states he has been nauseous, but has not vomited. Abd/pelvic CT scan reviewed by Dr. Baird, no hydronephrosis. or calculi. (1) UTI (urinary tract infection) Current Visit: Yes Status: Acute Code(s): N39.0 - URINARY TRACT INFECTION, SITE NOT SPECIFIED SNOMED Code(s): 32821062 Plan: - Continue Rocephin - Awaiting final urine cultures, recommend keeping in the hospital until cultures is finalized - Continue Tylenol as needed for fever - Continue Zofran as needed for nausea - Monitor serum creatinine level - Check PVR - Anticipate discharge in the next 24-48 hours Impression and plan of care have been directed as dictated by the signing physician. Jayshree Carreno nurse practitioner acting as scribe for signing physician. Jayshree Carreno [facility] Palliative Care/Urology [facility] [id number] Email: [email or web address] I personally performed and participated in the history, physical, the decision making, I agree with the assessment and plan of [employer]IOR [employer] DEVELOPER Time with Patient: Greater than 30
[2022-05-21] MEDS: MULTIVITAMINS, THERA 1 EACH TAB PO SCH (22:07)
[2022-05-21] MEDS: amLODIPine 10 MG TAB PO SCH (22:07)
[2022-05-21] MEDS: lisinopriL 20 MG TAB PO SCH (22:07)
--- NOTE | 2022-05-22 07:55 | P.PN ---
Subjective Progress Note Date: 05/22/22 Principal diagnosis: UTI The patient is a 66-year-old male who presented to the Emergency Department on 05/20/22 for fevers. He had a recent TURP with Dr. Baird on 05/11/22. He had been doing well and his Short catheter was removed without any problems. He started having fevers and chills x 2 days. Denied any nausea, vomiting, or sick contacts. Denied any sore throat, cough, dyspnea, chest pain, palpitations, abdominal pain, nausea, vomiting, diarrhea, back pain, or headaches. UA positive, WBC 32.2. The patient was placed on Rocephin. Abd/pelvic CT scan reviewed by Dr. Baird, no hydronephrosis or calculi. Objective - Vital Signs Vital signs: Vital Signs Temp 98.3 F 05/22/22 02:17 Pulse 88 05/22/22 02:17 Resp 17 05/22/22 02:17 BP 125/69 05/22/22 02:17 Pulse Ox 97 05/22/22 02:17 FiO2 Intake & Output 05/21/22 05/22/22 05/22/22 18:59 06:59 18:59 Intake Total 118 Balance 118 Intake: Oral 118 Other: Voiding Method Toilet Toilet # Voids 1 1 - Exam General: Well developed, well nourished. No acute distress. HEENT: Head is atraumatic, normocephalic. Lungs: . Respirations even and nonlabored. Abdomen/GI: Soft. No guarding, rigidity, or abdominal tenderness. Vascular: No peripheral edema Skin: Warm and dry Neurologic: Awake, alert and oriented times 3. CN II-XII grossly intact. Psychiatric: Appropriate mood and affect. - Labs CBC & Chem 7: 05/21/22 09:18 05/21/22 09:18 Labs: Abnormal Lab Results - Last 24 Hours (Table) 05/21/22 05/21/22 Range/Units 09:18 09:18 WBC 26.6 H (3.8-10.6) k/uL Neutrophils # 24.3 H (1.3-7.7) k/uL BUN 21 H (9-20) mg/dL Glucose 134 H (74-99) mg/dL Microbiology - Last 24 Hours (Table) 05/20/22 14:04 Urine Culture - Preliminary Urine,Clean Catch Gram Neg Bacilli 05/20/22 14:55 Blood Culture - Preliminary Blood No Growth after 24 hours 05/20/22 14:40 Blood Culture - Preliminary Blood No Growth after 24 hours Assessment and Plan Assessment: The patient denies any abdominal or flank pain. He states he is feeling better today. He is afebrile and VSS. Blood cultures NGTD. PVR yesterday < 10ml. Serum creatinine trending down, 1.05 yesterday from 1.26. Todays labs pending. (1) UTI (urinary tract infection) Current Visit: Yes Status: Acute Code(s): N39.0 - URINARY TRACT INFECTION, SITE NOT SPECIFIED SNOMED Code(s): 74730261 Plan: - Continue Rocephin - Awaiting final urine cultures, preliminary results show gram negative bacilli - Continue Tylenol as needed for fever - Continue Zofran as needed for nausea - Monitor serum creatinine level - Anticipate discharge in the next 24-48 hours Impression and plan of care have been directed as dictated by the signing physician. Jayshree Carreno nurse practitioner acting as scribe for signing physician. Jayshree Carreno [facility] Palliative Care/Urology [place] [id number] Email: [email or web address] The patient was examined by me and I concur with the above note, Qamar Davenport Time with Patient: Less than 30
--- NOTE | 2022-05-22 13:37 | P.HPIM ---
History of Present Illness H&P Date: 05/21/22 Chief Complaint: Recent TURP, chills, fever This is a pleasant 66-year-old gentleman with past medical history of hypertension, recent TURP on 05 11 with Short catheter discontinued 05/18/2022. Patient completed antibiotics of cephalexin 1 week post procedure. Reports by Saturday night after Short catheter discontinued, developed chills, fever, mild nausea that continued to worsen and presented to the ER on Saturday. Reports urine was clear without blood clots or sediment. Denies abdominal tenderness. Denies chest pain, palpitations or shortness of breath. Denies lightheadedness dizziness or focal deficits. CT of abdomen and pelvis reporting 2 cm cyst in the superior right lobe of the liver, 1 cm cyst inferior right lobe of the liver, no pancreatic mass, no adrenal mass, normal size kidneys, no hydronephrosis, ureters not dilated, no retinal adenopathy, 2 cm cortical cyst posterior left kidney, no free fluid in the pelvis, 5 cm prostate, evidence of previous prostate surgery. T-max 100.1, WBC 32.2, hemoglobin 13.8, platelets 195, sodium 135, potassium 4.5, bicarb 26, BUN 28, creatinine 1.26. Plasma lactic acid 1.6. Blood sugars controlled. UA reported moderate urine mucus, occasional bacteria, greater than 182 urine WBC, large leukocytes, negative nitrates, large blood, 1+ protein. Urine and blood cultures pending. Received 1 L bolus of IV fluids in the ER, maintenance fluids and IV antibiotics initiated. Review of Systems ROS Statement: Those systems with pertinent positive or pertinent negative responses have been documented in the HPI. ROS Other: All systems not noted in ROS Statement are negative. Past Medical History Past Medical History: Hypertension Additional Past Medical History / Comment(s): VARICOSE VEINS, FEELS LIKE FOOD SOMETIMES GETS STUCK History of Any Multi-Drug Resistant Organisms: None Reported Past Surgical History: No Surgical Hx Reported Additional Past Surgical History / Comment(s): SLIVER REMOVED FROM PALM OF HAND, TURP superficial cyst from chest egd, colonoscopy Additional Past Anesthesia/Blood Transfusion Reaction / Comment(s): BROTHER HAD HARD TIME WAKING UP FROM ANESTHESIA Past Psychological History: No Psychological Hx Reported Smoking Status: Never smoker Past Alcohol Use History: Occasional Past Drug Use History: None Reported - Past Family History Father Family Medical History: Deep Vein Thrombosis (DVT) Medications and Allergies Home Medications Medication Instructions Recorded Confirmed Type amLODIPine BESYLATE/BENAZEPRIL 1 cap PO HS 05/02/21 05/20/22 History [Lotrel 10-20 MG] Multivitamins, Thera [Multivitamin 1 tab PO HS 05/20/22 05/20/22 History (formulary)] Allergies Allergy/AdvReac Type Severity Reaction Status Date / Time No Known Allergies Allergy Verified 05/20/22 16:44 Physical Exam Vitals: Vital Signs Temp Pulse Pulse Resp BP BP Pulse Ox 05/21/22 07:00 98.1 F 73 16 113/67 96 05/21/22 01:21 97.6 F 90 16 130/71 95 05/20/22 20:00 97.8 F 97 16 140/74 95 05/20/22 18:25 100.1 F H 103 H 17 133/68 97 05/20/22 17:58 99.2 F 97 18 122/68 97 05/20/22 16:45 99.1 F 92 18 104/83 96 05/20/22 16:00 89 17 124/64 98 05/20/22 15:15 89 17 120/70 97 05/20/22 13:40 98.8 F 91 20 125/66 96 Intake and Output 05/20/22 05/21/22 05/21/22 22:59 06:59 14:59 Other: Voiding Method Toilet Toilet # Voids 1 3 Weight 65.771 kg PHYSICAL EXAM: VITAL SIGNS: [As above] GENERAL: Sitting up at side of bed, no acute distress HEENT: Conjunctivae normal. eyes normal.MMM. NECK: Supple, No JVD. No thyroid enlargement. No LNs CARDIOVASCULAR: S1, S2 regular. No murmur RESPIRATION: Unlabored, Breath sounds diminished in the bases. No rhonchi or crackles. No bronchial breathing. ABDOMEN: Soft, nontender, nondistended . No guarding. no masses palpable. No ascites, No hepatosplenomegaly.Bowel sounds heard. LEGS: No edema. no swelling PSYCHIATRY: Alert and oriented X3, mood and affect normal. NERVOUS SYSTEM: Cranial N 2-12 grossly normal. No focal deficits. Strength and sensation grossly intact. Skin: Warm and dry, no rash. Results CBC & Chem 7: 05/21/22 09:18 05/21/22 09:18 Labs: Abnormal Lab Results - Last 24 Hours (Table) 05/20/22 05/20/22 05/20/22 Range/Units 14:04 14:04 14:04 WBC 32.2 H (3.8-10.6) k/uL Neutrophils # (1.3-7.7) k/uL Neutrophils # (Manual) 28.90 H (1.3-7.7) k/uL Lymphocytes # (Manual) 0.32 L (1.0-4.8) k/uL Monocytes # (Manual) 2.58 H (0-1.0) k/uL Basophils # (Manual) 0.32 H (0-0.2) k/uL Sodium 135 L (137-145) mmol/L BUN 28 H (9-20) mg/dL Creatinine 1.26 H (0.66-1.25) mg/dL Glucose 115 H (74-99) mg/dL Urine Protein 1+ H (Negative) Urine Blood Large H (Negative) Ur Leukocyte Esterase Large H (Negative) Urine RBC >182 H (0-5) /hpf Urine WBC >182 H (0-5) /hpf Urine Bacteria Occasional H (None) /hpf Urine Mucus Moderate H (None) /hpf 05/21/22 05/21/22 Range/Units 09:18 09:18 WBC 26.6 H (3.8-10.6) k/uL Neutrophils # 24.3 H (1.3-7.7) k/uL Neutrophils # (Manual) (1.3-7.7) k/uL Lymphocytes # (Manual) (1.0-4.8) k/uL Monocytes # (Manual) (0-1.0) k/uL Basophils # (Manual) (0-0.2) k/uL Sodium (137-145) mmol/L BUN 21 H (9-20) mg/dL Creatinine (0.66-1.25) mg/dL Glucose 134 H (74-99) mg/dL Urine Protein (Negative) Urine Blood (Negative) Ur Leukocyte Esterase (Negative) Urine RBC (0-5) /hpf Urine WBC (0-5) /hpf Urine Bacteria (None) /hpf Urine Mucus (None) /hpf Microbiology - Last 24 Hours (Table) 05/20/22 14:04 Urine Culture - Preliminary Urine,Clean Catch Thrombosis Risk Factor Assmnt - Choose All That Apply Any of the Below Risk Factors Present?: Yes Each Risk Factor Represents 2 Points: Age 61-74 years Thrombosis Risk Factor Assessment Total Risk Factor Score: 2 Thrombosis Risk Factor Assessment Level: Low Risk Assessment and Plan Assessment: Acute UTI, in a patient with recent TURP on , Short catheter removed 05/18/2022 Leukocytosis secondary to the above Acute renal failure secondary to the above Hypertension Plan: Continue on current medication regime ,monitoring and symptomatic treatment. IV fluid hydration, IV antibiotics with ceftriaxone. Close monitoring of both blood and urine cultures. Bladder scan post void, evaluating for postvoid residuals. The impression and plan of care has been dictated as directed. : I performed a history and examination of this patient, discussed the same with the dictator. I agree with the dictator's note ,documented as a scribe. Any additional findings or plans will be noted.
[2022-05-22] MEDS ORDERED: Potassium Replacement Protocol 1 EACH MISC MISCELLANE PRN (17:23)
--- NOTE | 2022-05-22 17:27 | P.PN ---
Subjective Progress Note Date: 05/22/22 H&P Date: 05/21/22 Chief Complaint: Recent TURP, chills, fever This is a pleasant 66-year-old gentleman with past medical history of hypertension, recent TURP on 05 11 with Short catheter discontinued 05/18/2022. Patient completed antibiotics of cephalexin 1 week post procedure. Reports by Saturday night after Short catheter discontinued, developed chills, fever, mild nausea that continued to worsen and presented to the ER on Saturday. Reports urine was clear without blood clots or sediment. Denies abdominal tenderness. Denies chest pain, palpitations or shortness of breath. Denies lightheadedness dizziness or focal deficits. CT of abdomen and pelvis reporting 2 cm cyst in the superior right lobe of the liver, 1 cm cyst inferior right lobe of the liver, no pancreatic mass, no adrenal mass, normal size kidneys, no hydronephrosis, ureters not dilated, no retinal adenopathy, 2 cm cortical cyst posterior left kidney, no free fluid in the pelvis, 5 cm prostate, evidence of previous prostate surgery. T-max 100.1, WBC 32.2, hemoglobin 13.8, platelets 195, sodium 135, potassium 4.5, bicarb 26, BUN 28, creatinine 1.26. Plasma lactic acid 1.6. Blood sugars controlled. UA reported moderate urine mucus, occasional bacteria, greater than 182 urine WBC, large leukocytes, negative nitrates, large blood, 1+ protein. Urine and blood cultures pending. Received 1 L bolus of IV fluids in the ER, maintenance fluids and IV antibiotics init iated. 05/22/2022 maintained on IV fluid hydration, IV antibiotics of ceftriaxone. Preliminary blood cultures reporting no growth. Urine culture reporting gram- negative bacilli 50-100,000 colonies, finalizing. Afebrile, WBC improving decreased to 26.6. Post void residuals reported as minimal.Renal function improved. Ambulating, tolerating exertion well, denies shortness of breath. Maintaining O2 sats in the high 97% on room air. Objective - Vital Signs Vital signs: Vital Signs Temp 98.3 F 05/22/22 02:17 Pulse 88 05/22/22 02:17 Resp 17 05/22/22 02:17 BP 125/69 05/22/22 02:17 Pulse Ox 97 05/22/22 02:17 FiO2 Intake & Output 05/21/22 05/22/22 05/22/22 18:59 06:59 18:59 Intake Total 118 240 Balance 118 240 Intake: Oral 118 240 Other: Voiding Method Toilet Toilet # Voids 1 1 - Exam PHYSICAL EXAM: VITAL SIGNS: [As above] GENERAL: Standing up at side of bed, no acute distress HEENT: Conjunctivae normal. eyes normal.MMM. NECK: Supple, No JVD. CARDIOVASCULAR: S1, S2 regular. No murmur RESPIRATION: Unlabored, Breath sounds diminished in the bases. ABDOMEN: Soft, nontender, nondistended . No guarding. Positive Bowel sounds. LEGS: No edema. no swelling PSYCHIATRY: Alert and oriented X3, mood and affect normal. NERVOUS SYSTEM: Cranial N 2-12 grossly normal. No focal deficits. Strength and sensation grossly intact. Skin: Warm and dry, no rash. Microbiology 05/20/22 14:04 Urine,Clean Catch Urine Culture - Preliminary Gram Neg Bacilli 05/20/22 14:55 Blood Blood Culture - Preliminary No Growth after 24 hours 05/20/22 14:40 Blood Blood Culture - Preliminary No Growth after 24 hours - Labs CBC & Chem 7: 05/21/22 09:18 05/21/22 09:18 Labs: Microbiology - Last 24 Hours (Table) 05/20/22 14:04 Urine Culture - Preliminary Urine,Clean Catch Gram Neg Bacilli 05/20/22 14:55 Blood Culture - Preliminary Blood No Growth after 24 hours 05/20/22 14:40 Blood Culture - Preliminary Blood No Growth after 24 hours Assessment and Plan Assessment: Acute UTI, gram-negative bacilli, 50-100,000 colonies, in a patient with recent TURP on , Short catheter removed 05/18/2022 Leukocytosis secondary to the above, improving Acute renal failure secondary to the above, improving Hypertension Plan: Continue on current medication regime ,monitoring and symptomatic treatment. Maintain IV fluid hydration, IV antibiotics. Blood and urine cult ures finalizing. Close monitoring of WBC, renal function, electrolytes with repeat labs ordered for a.m. discharge planning in progress for tomorrow pending continued improvement in WBC ,final culture results, final DC recommendations and clearance per urology. The impression and plan of care has been dictated as directed. : I performed a history and examination of this patient, discussed the same with the dictator. I agree with the dictator's note ,documented as a scribe. Any additional findings or plans will be noted.
[2022-05-22] MEDS: PANTOPRAZOLE 40 MG/10 ML VIAL IVP SCH (19:03)
[2022-05-22] MEDS: MULTIVITAMINS, THERA 1 EACH TAB PO SCH (20:12)
[2022-05-22] MEDS: amLODIPine 10 MG TAB PO SCH (20:12)
[2022-05-22] MEDS: lisinopriL 20 MG TAB PO SCH (20:12)
[2022-05-23 09:17] LABS: Basophils # (A) 0.05 X 10*3/uL (0.00-0.10); Basophils % (A) 0.5 %; Eosinophils # (A) 0.11 X 10*3/uL (0.04-0.35); HCT 35.8 % (39.6-50.0); HGB 11.7 g/dL (13.0-17.0); Immature Grans, Automated 0.8 %; Lymphocytes # (A) 1.59 X 10*3/uL (0.90-5.00); Lymphocytes % (A) 14.5 %; MCH 30.1 pg (27.0-32.0); MCHC 32.7 g/dL (32.0-37.0); Mean Platelet Volume 12.4 fL (9.5-12.2); Monocytes # (A) 1.19 X 10*3/uL (0.20-1.00); Monocytes % (A) 10.9 %; NRBC Per 100 WBC 0 /100 WBCS (0.0-0.0); Neutrophils # (A) 7.91 X 10*3/uL (1.80-7.70); Neutrophils % (A) 72.3 %; Platelet Count 220 X 10*3/uL (140-440); RBC 3.89 X 10*6/uL (4.40-5.60); RDW 12.8 % (11.5-14.5); WBC 10.94 X 10*3/uL (4.50-10.00)
[2022-05-23] MEDS: PANTOPRAZOLE 40 MG/10 ML VIAL IVP SCH (09:18)
[2022-05-23 09:47] LABS: African American GFR (CKD) 95.1 (60.0-200.0); Anion Gap 10.9 mmol/L (10.00-18.00); BUN/Creat Ratio 15.52 Ratio (12.00-20.00); Blood Urea Nitrogen 14.9 mg/dL (9.0-27.0); Calcium 8.5 mg/dL (8.7-10.3); Carbon Dioxide 23.4 mmol/L (20.0-27.5)
--- NOTE | 2022-05-23 12:24 | P.DS ---
Providers Date of admission: 05/23/22 09:34 Expected date of discharge: 05/23/22 Attending physician: Shane Mariee Consults: 05/21/22 08:57 Consult Physician Routine Consulting Provider: Peewee Baird Consult Reason/Comments: recent turp 05/11/22 Do you want consulting provider notified?: Yes Primary care physician: hSane Mariee Hospital Course: Final Diagnoses: Acute UTI, gram-negative bacilli, 50-100,000 colonies, in a patient with recent TURP on , Short catheter removed 05/18/2022 Leukocytosis secondary to the above, improving Acute renal failure secondary to the above, improving Hypertension Hospital course:This is a pleasant 66-year-old gentleman with past medical history of hypertension, recent TURP on 05 11 with Short catheter discontinued 05/18/2022. Patient completed antibiotics of cephalexin 1 week post procedure. Reports by Saturday night after Short catheter discontinued, developed chills, fever, mild nausea that continued to worsen and presented to the ER on Saturday. Reports urine was clear without blood clots or sediment. Denies abdominal tenderness. Denies chest pain, palpitations or shortness of breath. Denies lightheadedness dizziness or focal deficits. CT of abdomen and pelvis reporting 2 cm cyst in the superior right lobe of the liver, 1 cm cyst inferior right lobe of the liver, no pancreatic mass, no adrenal mass, normal size kidneys, no hydronephrosis, ureters not dilated, no retinal adenopathy, 2 cm cortical cyst posterior left kidney, no free fluid in the pelvis, 5 cm prostate, evidence of previous prostate surgery. T-max 100.1, WBC 32.2, hemoglobin 13.8, platelets 195, sodium 135, potassium 4.5, bicarb 26, BUN 28, creatinine 1.26. Plasma lactic acid 1.6. Blood sugars controlled. UA reported moderate urine mucus, occasional bacteria, greater than 182 urine WBC, large leukocytes, negative nitrates, large blood, 1+ protein. Urine and blood cultures pending. Received 1 L bolus of IV fluids in the ER, maintenance fluids and IV antibiotics initiated. 05/22/2022 maintained on IV fluid hydration, IV antibiotics of ceftriaxone. Preliminary blood cultures reporting no growth. Urine culture reporting gram- negative bacilli 50-100,000 colonies, finalizing. Afebrile, WBC improving decreased to 26.6. Post void residuals reported as minimal.Renal function improved. Ambulating, tolerating exertion well, denies shortness of breath. Maintaining O2 sats in the high 97% on room air. Continues on IV antibiotics of ceftriaxone .Afebrile, WBC significantly decreased to 10.94. Pulmonary blood cultures reporting no growth after 48 hours, preliminary urine culture gram-negative bacilli, final results pending. Renal function continues to improve, BUN 14.9, creatinine 1.Maintaining O2 sats in the high 90s on room air. Denies chest pain, palpitations or shortness of breath. Ambulating in hallway, tolerating exertion well. Denies lightheadedness, dizziness or focal deficits. Denies nausea vomiting or diarrhea. Denies abdominal pain, flank/ back pain. Denies difficulty with voiding. Significant clinical improvement. Patient will be discharged home today in a stable condition with guarded prognosis,pending final urine culture results, final DC recommendations/antibiotics and clearance as per urology. The impression and plan of care has been dictated as directed. : I performed a history and examination of this patient, discussed the same with the dictator. I agree with the dictator's note ,documented as a scribe. Any additional findings or plans will be noted. Patient Condition at Discharge: Stable Plan - Discharge Summary Discharge Rx Participant: Yes New Discharge Prescriptions: Continue Multivitamins, Thera [Multivitamin (formulary)] 1 tab PO HS amLODIPine BESYLATE/BENAZEPRIL [Lotrel 10-20 MG] 1 cap PO HS Discharge Medication List amLODIPine BESYLATE/BENAZEPRIL [Lotrel 10-20 MG] 1 cap PO HS 05/02/21 [History] Multivitamins, Thera [Multivitamin (formulary)] 1 tab PO HS 05/20/22 [History] Follow up Appointment(s)/Referral(s): Shane Mariee DO [Primary Care Provider] - 1 Week
[2022-05-23 14:34] VITALS: BP 135/66; PULSE 74; RESP 20; TEMP 97.9
== END 2022-05-23 17:00 | disposition home or self-care (01) | DRG 690 ==
LOC: EC 13:32 → 6NMEDSUR 16:12 → OBSVTOIN 05-23 09:34
PROVIDERS: ADMIT Family Medicine; ATTEND Family Medicine
DX: N39.0 Urinary tract infection, site not specified (principal); N17.9 Acute kidney failure, unspecified; K76.89 Other specified diseases of liver; I10 Essential (primary) hypertension; B96.89 Other specified bacterial agents as the cause of diseases classified elsewhere; E86.0 Dehydration; N28.1 Cyst of kidney, acquired; R31.9 Hematuria, unspecified; R50.82 Postprocedural fever; Z90.79 Acquired absence of other genital organ(s); Z79.899 Other long term (current) drug therapy; Z28.310 Unvaccinated for COVID-19
CPT/HCPCS: 36415; 74177; 80048; 80053; 81001; 82150; 83605; 83690; 83735; 84484; 85025; 87040; 87086; 87502; 87635; 93005; 96361; 96374; 99285